=== PATIENT | male | born 1945 | race Caucasian/White ===

== ENCOUNTER 2017-06-27 09:01 | Inpatient (IN) | payer OTHER ==
[~2017-06-27] VITALS: Ht 170.2 cm; Wt 80.3 kg
[2017-06-27] MEDS ORDERED: ONDANSETRON 2MG/ML, 2ML ONE ×2 (09:56→11:07)
[2017-06-27] MEDS ORDERED: PROCHLORPERAZINE 5 MG/ML, 2ML IVPush ONE (10:00)
[2017-06-27 10:01] LABS: HEMOGLOBIN 17.5 g/dL (13.7-18.0); WHITE BLOOD COUNT 11.9 x10^3/uL (3.4-10)
[2017-06-27] MEDS ORDERED: PROCHLORPERAZINE 5 MG/ML, 2ML ONE (10:10)
[2017-06-27 10:15] LABS: BLOOD UREA NITROGEN 16 mg/dL (7-18)
[2017-06-27 10:18] LABS: ASPARTATE AMINO TRANSFERASE 10 U/L (15-37)
[2017-06-27] MEDS ORDERED: ONDANSETRON 2MG/ML, 2ML IVPush ONE ×2 (11:00)
[2017-06-27] MEDS ORDERED: SODIUM CHLORIDE 0.9% 1,000ML IVBOLUS ONE (11:00)
[2017-06-27] MEDS ORDERED: PROCHLORPERAZINE 5 MG/ML, 2ML IM ONE (11:00)
[2017-06-27] MEDS ORDERED: SODIUM CHLORIDE FLUSH 10ML SYR IVF ONE (11:00)
[2017-06-27 11:21] LABS: IS PT STATUS REG ER OR PRE ER? YES
[2017-06-27] MEDS ORDERED: HALOPERIDOL 5 MG/ML ONE (11:43)
[2017-06-27] MEDS ORDERED: HALOPERIDOL 5 MG/ML IM ONE (11:43)
[2017-06-27] MEDS ORDERED: OMNIPAQUE 350 MG/ML, 100ML BOTTLE ONE (13:12)
[2017-06-27] MEDS ORDERED: LISI-170 PO (15:00)
[2017-06-27] MEDS ORDERED: PIOG15TA2 PO (15:00)
[2017-06-27] MEDS ORDERED: AMLO5TAB2 PO (15:00)
[2017-06-27] MEDS ORDERED: DULA0.75 SQ (15:00)
[2017-06-27] MEDS ORDERED: DAPA1TAB3 PO (15:00)
[2017-06-27] MEDS ORDERED: OMEP-110 PO (15:00)
[2017-06-27 16:20] VITALS: BP 150/77
[2017-06-27] MEDS: SODIUM CHLORIDE 0.9% 1,000 ML IV SCH (17:50)
[2017-06-27] MEDS ORDERED: DEXTROSE 50%, 50ML SYRINGE IVPush PRN (18:00)
[2017-06-27] MEDS ORDERED: morphine SULFATE 10 MG/ML, 1ML IVPush PRN (18:00)
[2017-06-27] MEDS ORDERED: GLUCAGON 1 MG IM PRN (18:00)
[2017-06-27] MEDS ORDERED: DOCUSATE 100 MG CAPSULE PO PRN (18:00)
[2017-06-27] MEDS ORDERED: BISACODYL 10 MG SUPP PR PRN (18:00)
[2017-06-27] MEDS ORDERED: POLYETHYLENE GLYCOL 17 GM PACKET PO PRN (18:00)
[2017-06-27] MEDS ORDERED: ACETAMINOPHEN 325 MG TABLET PO PRN (18:00)
[2017-06-27] MEDS ORDERED: ONDANSETRON 2MG/ML, 2ML IVPush PRN (18:00)
[2017-06-27] MEDS ORDERED: DEXTROSE 4 GM TAB.CHEW PO PRN (18:00)
[2017-06-27] MEDS: ENOXAPARIN 40 MG/0.4 ML SQ SCH (18:22)
[2017-06-27 19:25] LABS: IS PT STATUS REG ER OR PRE ER? NO
[2017-06-27] MEDS: INSULIN ASPART 100 UNITS/ML, PEN SQ-INSULIN SCH (21:00)
[2017-06-27] MEDS: SODIUM CHLORIDE FLUSH 10ML SYR IVF SCH (21:00)
[2017-06-27 21:15] VITALS: BP 157/74
[2017-06-28] MEDS: SODIUM CHLORIDE 0.9% 1,000 ML IV SCH ×2 (00:30→09:04)
[2017-06-28 00:39] LABS: IS PT STATUS REG ER OR PRE ER? NO
[2017-06-28 03:59] VITALS: BP 164/77
[2017-06-28] MEDS: PROMETHAZINE 25 MG/ML, 1ML IM PRN ×2 (04:38→08:13)
[2017-06-28 05:29] LABS: HEMATOCRIT 50.3 % (39.2-51.8); HEMOGLOBIN 16.9 g/dL (13.7-18.0); WHITE BLOOD COUNT 17.4 x10^3/uL (3.4-10)
[2017-06-28 05:50] LABS: ASPARTATE AMINO TRANSFERASE 17 U/L (15-37); BLOOD UREA NITROGEN 20 mg/dL (7-18)
[2017-06-28] MEDS: HYDROcodone/APAP 5/325 TABLET PO PRN ×2 (08:13→13:51)
[2017-06-28] MEDS ORDERED: POTASSIUM CHLORIDE 20 MEQ TAB.ER.PRT PO ONE (08:30)
[2017-06-28] MEDS: INSULIN ASPART 100 UNITS/ML, PEN SQ-INSULIN SCH ×4 (08:57→21:23)
[2017-06-28] MEDS: SODIUM CHLORIDE FLUSH 10ML SYR IVF SCH ×2 (09:00→21:22)
[2017-06-28] MEDS: PIOGLITAZONE 15 MG TABLET PO SCH (10:17)
[2017-06-28] MEDS: LISINOPRIL 20 MG TABLET PO SCH (10:17)
[2017-06-28] MEDS: OMEPRAZOLE 20 MG CAPSULE.DR PO SCH (10:17)
[2017-06-28] MEDS: AMLODIPINE 5 MG TABLET PO SCH (10:17)
[2017-06-28 12:01] LABS: IS PT STATUS REG ER OR PRE ER? NO
[2017-06-28 13:53] VITALS: BP 149/68
[2017-06-28 16:27] LABS: IS PT STATUS REG ER OR PRE ER? NO
[2017-06-28] MEDS: ENOXAPARIN 40 MG/0.4 ML SQ SCH (17:18)
[2017-06-28 19:13] VITALS: BP 142/70
[2017-06-29 00:55] VITALS: BP 144/76
[2017-06-29 06:21] LABS: HEMATOCRIT 46.3 % (39.2-51.8); HEMOGLOBIN 15.4 g/dL (13.7-18.0); WHITE BLOOD COUNT 9.7 x10^3/uL (3.4-10)
[2017-06-29 06:26] LABS: BLOOD UREA NITROGEN 17 mg/dL (7-18)
[2017-06-29] MEDS: INSULIN ASPART 100 UNITS/ML, PEN SQ-INSULIN SCH ×4 (07:00→20:41)
[2017-06-29 07:34] VITALS: BP 149/77
[2017-06-29] MEDS: SODIUM CHLORIDE FLUSH 10ML SYR IVF SCH ×2 (09:00→19:50)
[2017-06-29] MEDS: OMEPRAZOLE 20 MG CAPSULE.DR PO SCH ×2 (09:50→18:17)
[2017-06-29] MEDS: LISINOPRIL 20 MG TABLET PO SCH (09:50)
[2017-06-29] MEDS: PIOGLITAZONE 15 MG TABLET PO SCH (09:51)
[2017-06-29] MEDS: AMLODIPINE 5 MG TABLET PO SCH (09:51)
[2017-06-29] MEDS: HYDROcodone/APAP 5/325 TABLET PO PRN (11:40)
[2017-06-29] MEDS: PROMETHAZINE 25 MG/ML, 1ML IM PRN (11:40)
[2017-06-29] MEDS ORDERED: MIDAZOLAM 1 MG/ML, 5ML ONE (11:50)
[2017-06-29] MEDS ORDERED: FENTANYL PF 100 MCG/2ML ONE (11:50)
[2017-06-29 13:50] VITALS: BP 100/57
[2017-06-29] MEDS: ENOXAPARIN 40 MG/0.4 ML SQ SCH (18:17)
[2017-06-29 18:41] VITALS: BP 109/67
[2017-06-30 00:44] VITALS: BP 117/67
[2017-06-30 04:49] LABS: BLOOD UREA NITROGEN 18 mg/dL (7-18)
[2017-06-30 05:00] LABS: HEMATOCRIT 42.8 % (39.2-51.8); HEMOGLOBIN 14.2 g/dL (13.7-18.0); WHITE BLOOD COUNT 6.3 x10^3/uL (3.4-10)
[2017-06-30 07:29] VITALS: BP 136/76
[2017-06-30] MEDS: SODIUM CHLORIDE FLUSH 10ML SYR IVF SCH ×2 (09:55→21:21)
[2017-06-30] MEDS: PIOGLITAZONE 15 MG TABLET PO SCH (09:55)
[2017-06-30] MEDS: OMEPRAZOLE 20 MG CAPSULE.DR PO SCH ×2 (09:55→16:44)
[2017-06-30] MEDS: AMLODIPINE 5 MG TABLET PO SCH (09:55)
[2017-06-30] MEDS: INSULIN ASPART 100 UNITS/ML, PEN SQ-INSULIN SCH ×4 (09:56→21:22)
[2017-06-30] MEDS: LISINOPRIL 20 MG TABLET PO SCH (09:56)
[2017-06-30 13:54] VITALS: BP 135/77
[2017-06-30] MEDS: ENOXAPARIN 40 MG/0.4 ML SQ SCH (16:44)
[2017-06-30 18:36] VITALS: BP 114/68
[2017-06-30] MEDS ORDERED: POTASSIUM CHLORIDE 20 MEQ TAB.ER.PRT PO ONE (20:30)
[2017-07-01 02:00] VITALS: BP 128/70
[2017-07-01 05:09] LABS: HEMATOCRIT 43.4 % (39.2-51.8); HEMOGLOBIN 14.4 g/dL (13.7-18.0); WHITE BLOOD COUNT 6.2 x10^3/uL (3.4-10)
[2017-07-01 05:11] LABS: BLOOD UREA NITROGEN 14 mg/dL (7-18)
[2017-07-01] MEDS: INSULIN ASPART 100 UNITS/ML, PEN SQ-INSULIN SCH ×2 (07:00→11:42)
[2017-07-01 07:06] VITALS: BP 106/68
[2017-07-01] MEDS: OMEPRAZOLE 20 MG CAPSULE.DR PO SCH (08:09)
[2017-07-01] MEDS: SODIUM CHLORIDE FLUSH 10ML SYR IVF SCH (09:00)
[2017-07-01] MEDS ORDERED: OMEP-110 PO (09:41)
[2017-07-01] MEDS: PIOGLITAZONE 15 MG TABLET PO SCH (10:13)
[2017-07-01] MEDS: LISINOPRIL 20 MG TABLET PO SCH (10:13)
[2017-07-01] MEDS: AMLODIPINE 5 MG TABLET PO SCH (10:13)
[2017-07-01 11:35] VITALS: BP 125/78
== END 2017-07-01 11:50 | disposition home or self-care (01) | DRG 380 ==
LOC: ED 10:47 → EDIP 14:15 → 4NOR 15:55
PROVIDERS: ADMIT Hospitalist; ATTEND Hospitalist
PROC: 0DB78ZX Excision of Stomach, Pylorus, Via Natural or Artificial Opening Endoscopic, Diagnostic (ICD-10-PCS; 2017-06-29)
PROC: 0DB98ZX Excision of Duodenum, Via Natural or Artificial Opening Endoscopic, Diagnostic (ICD-10-PCS; principal; 2017-06-29 13:15)
DX: K22.10 Ulcer of esophagus without bleeding (principal); N17.0 Acute kidney failure with tubular necrosis; K26.9 Duodenal ulcer, unspecified as acute or chronic, without hemorrhage or perforation; N28.1 Cyst of kidney, acquired; E86.0 Dehydration; J44.9 Chronic obstructive pulmonary disease, unspecified; E11.9 Type 2 diabetes mellitus without complications; D72.829 Elevated white blood cell count, unspecified; F12.90 Cannabis use, unspecified, uncomplicated; F17.210 Nicotine dependence, cigarettes, uncomplicated; I10 Essential (primary) hypertension; K21.0 Gastro-esophageal reflux disease with esophagitis; K29.80 Duodenitis without bleeding; K31.9 Disease of stomach and duodenum, unspecified; K29.40 Chronic atrophic gastritis without bleeding; K59.00 Constipation, unspecified; M43.17 Spondylolisthesis, lumbosacral region; Z79.899 Other long term (current) drug therapy; Z80.1 Family history of malignant neoplasm of trachea, bronchus and lung; Z90.49 Acquired absence of other specified parts of digestive tract; Z88.0 Allergy status to penicillin
CPT/HCPCS: 36415; 74022; 74177; 80048; 80053; 80061; 81003; 82962; 83036; 83690; 83735; 84100; 84443; 84484; 85025; 85610; 85730; 86677; 87324; 88305; 93005; 93306; 96361; 96372; 96374; 96375; 99152; 99153; J1650; J1815; J2250; J2405; J2550; J3010; Q9967; J1630; J7030

== ENCOUNTER 2017-07-25 05:27 | Day surgery (SDC) | payer OTHER ==
[2017-07-24 12:24] LABS: ASPARTATE AMINO TRANSFERASE 13 U/L (15-37); BLOOD UREA NITROGEN 15 mg/dL (7-18)
[~2017-07-25] VITALS: Ht 170.2 cm; Wt 78.8 kg
[~2017-07-25 05:27] MED LIST: ACET325T14 PO; AMLO5TAB2 PO; ASPI-621 PO; CHOL10003 PO; DAPA1TAB3 PO; DULA0.75 SQ; INSU100V8 SQ; LISI-170 PO; MULT-516 PO; OMEP-110 PO; PIOG15TA2 PO; POLY17PO3 PO
[2017-07-25] MEDS ORDERED: LACTATED RINGERS 1,000 ML IV SCH (06:10)
[2017-07-25 06:12] VITALS: BP 128/80
[2017-07-25] MEDS ORDERED: LIDOCAINE 1%, 2ML SQ PRN (06:30)
[2017-07-25] MEDS ORDERED: PROPOFOL 10 MG/ML, 20ML ONE ×3 (07:14→07:55)
[2017-07-25] MEDS ORDERED: DIAZEPAM 5 MG/ML, 2ML IVPush PRN (08:30)
[2017-07-25] MEDS ORDERED: MIDAZOLAM 1 MG/ML, 2ML IV PRN (08:30)
[2017-07-25] MEDS ORDERED: LABETALOL 5MG/ML, 20ML IV PRN (08:30)
[2017-07-25] MEDS ORDERED: ALBUTEROL/IPRATROPIUM 2.5MG/0.5MG, 3 ML NPPB PRN (08:30)
[2017-07-25] MEDS ORDERED: LORazepam 2 MG/ML, 1ML IVPush PRN (08:30)
[2017-07-25] MEDS ORDERED: HYDROmorphone 1 MG/ML, 1ML IV PRN (08:30)
[2017-07-25] MEDS ORDERED: EPHEDRINE 50 MG/ML, 1ML IVPush PRN (08:30)
[2017-07-25] MEDS ORDERED: ONDANSETRON 2MG/ML, 2ML IVPush PRN (08:30)
[2017-07-25] MEDS ORDERED: FENTANYL PF 100 MCG/2ML IV PRN (08:30)
[2017-07-25] MEDS ORDERED: OXYcodone 5 MG/5 ML ORAL.SOL UDC PO PRN (08:30)
== END 2017-07-25 10:15 ==
LOC: OUT 05:27
PROVIDERS: ATTEND Internal Medicine Geriatric Medicine
DX: K29.80 Duodenitis without bleeding (principal); K21.9 Gastro-esophageal reflux disease without esophagitis; K26.3 Acute duodenal ulcer without hemorrhage or perforation; I10 Essential (primary) hypertension; E11.9 Type 2 diabetes mellitus without complications; J44.9 Chronic obstructive pulmonary disease, unspecified
CPT/HCPCS: 36415; 43239; 43259; 80053; 82962; 88305; 93005; J2704; J7120